=== PATIENT | female | born 1990 | race Caucasian/White ===

== ENCOUNTER 2019-05-14 19:36 | Emergency (ER) | payer OTHER ==
[~2019-05-14] VITALS: Ht 154.9 cm; Wt 99.8 kg
== END 2019-05-15 06:55 | disposition home or self-care (01) ==
LOC: ER 19:36
DX: T18.198A Other foreign object in esophagus causing other injury, initial encounter (principal); T18.0XXA Foreign body in mouth, initial encounter; Q61.01 Congenital single renal cyst

== ENCOUNTER 2021-07-15 13:01 | Emergency (ER) | payer OTHER ==
[~2021-07-15] VITALS: Ht 154.9 cm; Wt 89.4 kg
[2021-07-15] MEDS ORDERED: KETO10TA2 PO (15:29)
== END 2021-07-15 15:29 | disposition home or self-care (01) ==
LOC: ER 13:01
DX: R59.1 Generalized enlarged lymph nodes (principal)